=== PATIENT | female | born 1935 | race Caucasian/White ===

== ENCOUNTER 2024-06-26 08:17 | Outpatient (CLI) | payer MEDICARE, OTHER, SELFPAY ==
--- OUTSIDE RECORDS SUMMARY | 2024-06-26 08:20 | XMS_ITS | Encounter Summary ---
Author Organization [facility] Address [address] [place] [address] Care Team Providers Care Gastroenterology Nurse Name Role Phone Leigh Petty M.D. Primary Care Provider [phone] [phone] Encounter Details Date Type Department Care Team (Late st Contact Info) Description 05/08/2015 Historical Ophthalmology RST OPH Vasiliy Morejon M.D. [address] [place] [address] Social History Tobacco Use Types Packs/Day Years Used Date Smoking Tobacco: Never Assessed Comments Unknown Sex and Gender Information Value Date Recorded Sex Assigned at Female 07/27/2023 9:52 AM CLOUD SERVICES ARCHITECT Legal Sex Female 5:55 AM CLOUD SERVICES ARCHITECT Gender Identity Not on file Sexual Orientation Straight 01/01/2018 10 :31 AM CDT documented as of this encounter Progress Notes * Vasiliy Morejon M.D. - 05/08/2015 8:42 AM CDT Eye General CHIEF COMPLAINT general HISTORY OF PRESENT ILLNESS GREGG 3 years Patient feels the right eye is not as clear while watching TV. Patient denies eye pain, flashing lights, diplopia or floaters. She uses [facility] twice a day, once in the morning and in the evening. IMPRESSION / REPORT / PLAN #1 history left retinal tear stable s/p laser #2 cataracts no rx yet #3 refractive error rx given DIAGNOSIS #1 history left retinal tear #2 cataracts #3 refractive error CDM Reports - EYEGEN Id: [id number] Status: Fnl documented in this encounter Plan of Treatment Upcoming Encounters Date Type Department Care Team (Latest Contact Info) Description 06/28/2024 10:00 AM CLOUD SERVICES ARCHITECT Clinical Communication Virtual Review in [place], [place] 200 [place] [address] documented as of this encounter Visit Diagnoses Not on filedocumented in this encounter Additional Health Concerns Infection Onset Date Last Indicated Resolved Time COVID19 09/11/2022 09/11/2022 10/01/2022 4:57 AM CLOUD SERVICES ARCHITECT documented as of this encounter Care Teams Gastroenterology Nurse Relationship Specialty Start Date End Date Leigh Petty M.D. [address] [place] [phone] PCP - General Family Medicine 06/19/08 documented as of this encounter
--- OUTSIDE RECORDS SUMMARY | 2024-06-26 08:20 | XMS_ITS | Encounter Summary ---
Author Organization [facility] Address [address] [place] [address] Care Team Providers Care Er Manager Name Role Phone Leigh Petty M.D. Primary Care Provider [phone] [phone] Reason for Visit * Reason Comments Nurse Visit Seasonal vaccine wendy se visit Encounter Details Date Type Department Care Team (Late st Contact Info) Description 05/16/2024 11:30 AM CDT Immunization Department of Family Medicine, [facility], in [place], [place] [address] [place] [phone] Ariadna Cuellar LCristinaPCristinaN. [address], [place] [phone] Need Vaccine Immunization (Primary Dx) Social History Tobacco Use Types Packs/Day Years Used Date Smoking Tobacco: Former Cigarettes Passive Smoke Exposure: Past Smokeless Tobacco: Never Alcohol Use Standard Drinks/Week Comments Not Currently 2 (1 standard drink = 0.6 oz pur e alcohol) [facility] Utilities Answer Date Recorded In the past 12 months has e electric, gas, oil, or water company threatened to shut off services in your home? No 07/27/2023 Humiliation, Afraid, Rape, and Kick questionnair e Answer Date Recorded Within the last year, have y ou been afraid of your partner or ex-partner? No 05/04/2023 Within the last year, have y ou been humiliated or emotionally abused in other ways by your partner or ex-partner? No Within the last year, have y ou been kicked, hit, slapped, or otherwise physically hurt by your partner or ex-partner? No 05/04/2023 Within the last year, have y ou been raped or forced to have any kind of sexual activity by your partner or ex-partner? No 05/04/2023 AUDIT-C Answer Date Recorded Frequency of Alcohol Consumption Never 04/25/2019 Average Number of Drinks Not on file 019 Frequency of Binge Drinking Not on file 04/01 Overall Financial Resource Strain (CARDIA) Answe r Date Recorded How hard is it for you to pa y for the very basics like food, housing, medical care, and heating? Not hard at all 05/04/2023 PHQ-2 Answer Date Recorded PHQ-2 Score 0 03/06/2024 Exercise Vital Sign Answer Date Recorde d On average, how many days pe r week do you engage in moderate to strenuous exercise (like a brisk walk)? 3 days 07/27/2023 On average, how many minutes do you engage in exercise at this level? 20 min 07/27/2023 Hunger Vital Sign Answer Date Recorded Within the past 12 months, y ou worried that your food would run out before you got the money to buy more. Never true 07/27/20 Within the past 12 months, t he food you bought just didn't last and you didn't have money to get more. Never true 07/27/2023 PRAPARE - Transportation Answer Date Re corded In the past 12 months, has l ack of transportation kept you from medical appointments or from getting medications? No 07/01 In the past 12 months, has l ack of transportation kept you from meetings, work, or from getting things needed for daily living? No 07/27/2023 Depression Answer Date Recor ded PHQ-9 Total Score (max 27) 3 03/21 Nutrition Answer Date Recorded On average, how many serving s of fruits and vegetables do you eat per day (serving size is equal to 1 cup or approximately the size of a tennis ball)? 0-2 07/27/2023 Dental Answer Date Recorded Dental: Regular Dentist Yes 05/04/20 Employment Answer Date Recorded Employment status Retired 07/27/2023 Housing Stability Answer Date Recorded What is your living situation today? I have a [facility] place to live 07/27/2023 Comments No Sex and Gender Information Value Date Recorded Sex Assigned at Female 07/27/2023 9:52 AM FOREPART LASTER Legal Sex Female 5:55 AM FOREPART LASTER Gender Identity Not on file Sexual Orientation Straight 01/01/2018 10 :31 AM CDT documented as of this encounter Last Filed Vital Signs Vital Sign Reading Time Taken Comments Blood Pressure 170/77 05/16/2024 11:30 AM CDT Pulse 69 05/16/2024 11:30 AM CDT Temperature - - Respiratory Rate - - Oxygen Saturation - - Inhaled Oxygen Concentration - - Weight - - Height - - Body Mass Index - - documented in this encounter Plan of Treatment Upcoming Encounters Date Type Department Care Team (Latest Contact Info) Description 06/28/2024 10:00 AM FOREPART LASTER Clinical Communication Virtual Review in [place], [place] [address] [place] [address] documented as of this encounter Visit Diagnoses Diagnosis Need Vaccine Immunization- Primary documented in this encounter Additional Health Concerns Assessment Noted Time PHQ-9 Depression Total Score: 3 03/21/20 23 8:50 AM CDT documented as of this encounter Care Teams Er Manager Relationship Specialty Start Date End Date Leigh ePtty M.D. [address] [place] [phone] PCP - General Family Medicine 06/19/08 documented as of this encounter
--- OUTSIDE RECORDS SUMMARY | 2024-06-26 08:20 | XMS_ITS | Encounter Summary ---
Author Organization [facility] Address [address] [place] [address] Care Team Providers Care Out And Out Cigar Maker Hand Name Role Phone Leigh Petty M.D. Primary Care Provider [phone] [phone] Reason for Referral * Outpatient (Routine) - Closed Specialty Diagnoses / Procedures Referred By Contac t Referred To Contact Diagnoses Screening Mammogram Breast Cancer Procedures BI Breast Screening Bilateral with Tomosynthesis Vasiliy Chavez APRN C.N.PCristina, M.S.N. [address] [place] [phone] Phone: tel: fax: [facility] Referral ID Status Reason Start Date Expiration Date Visits Re quested Visits Authorized [id number] Closed 03/06/2024 03/06/2025 1 1 Reason for Visit * Outpatient (Routine) - Closed Specialty Diagnoses / Procedures Referred By Contcolten t Referred To Contact Diagnoses Screening Mammogram Breast Cancer Procedures BI Breast Screening Bilateral with Tomosynthesis Vasiliy Chavez APRN C.N.P., M.S.N. [address] [place] [phone] Phone: tel: fax: [facility] Referral ID Status Reason Start Date Expiration Date Visits Re quested Visits Authorized [id number] Closed 03/06/2024 03/06/2025 1 1 Encounter Details Date Type Department Care Team (Latest Contact Info) Description 05/10/2024 9:25 AM CDT - 05/10/2024 11:59 PM CDT Hospital Encounter Department of Radiology in [place], [place] [address] [place] [address] Vasiliy Chavez APRN, C.N.P., M.S.N. [address] [place] [address] Screening Mammogram Breast Cancer Discharge Disposition: Home or Self Care Social History Tobacco Use Types Packs/Day Years Used Date Smoking Tobacco: Former Cigarettes Passive Smoke Exposure: Past Smokeless Tobacco: Never Alcohol Use Standard Drinks/Week Comments Not Currently 2 (1 standard drink = 0.6 oz pur e alcohol) [facility] Utilities Answer Date Recorded In the past 12 months has [employer], gas, oil, or water [employer] threatened to shut off services in your [...] your living situation today? I have a [facility] place to live 07/27/2023 Comments No Sex and Gender Information Value Date Recorded Sex Assigned at Female 07/27/2023 9:52 AM CHILD CARE ASSOCIATE TEACHER Legal Sex Female 5:55 AM CHILD CARE ASSOCIATE TEACHER Gender Identity Not on file Sexual Orientation Straight 01/01/2018 10 :31 AM CDT documented as of this encounter Medications at Time of Discharge acetaminophen (TYLENOL) 500 mg tablet Take 1-2 tablets by mouth as needed. pain 06/15/2008 ascorbic acid, vitamin C, (VITAMIN C) 500 mg tablet Take 2 tablets by mouth daily. 06/16/2008 atorvastatin (Lipitor) 10 mg tablet Take 1 tablet (10 mg total) by mouth daily. 90 tablet 3 06/06/2024 6:10 PM CHILD CARE ASSOCIATE TEACHER 03/06/2024 calcium carbonate-vitamin D3 1,500 mg (600 mg calcium)-5 mcg (200 Unit) per tablet Take 1 tablet by mouth 2 (two) times a day. 06/15/2008 cephalexin (KEFLEX) 500 mg capsule Take 2 capsules (1,000 mg total) by mouth 2 (two) times a day. 28 capsule 07/27/2023 10:59 AM CHILD CARE ASSOCIATE TEACHER 07/27/2023 cholecalciferol (VITAMIN D3) 10 mcg (400 Unit) tablet Take 1 tablet by mouth 2 (two) times a day. 06/16/2008 DOCOSAHEXANOIC ACID/EPA (FISH OIL ORAL) Take 1 capsule by mouth 2 (two) times a day. 12/17/2014 estradioL (Vivelle-Dot) 0.025 mg/[address] 1 patch on the skin 2 (two) times a week. 24 patch 3 10/16/2023 11:42 AM CDT 11/07/2022 FOLIC ACID/MULTIVIT,IRO N,ARMORED CABLE MACHINE OPERATOR (CENTRUM ORAL) Take 1 tablet by mouth daily. 06/16/2008 L. ACIDOPHILUS/BIFID . ANIMALIS (SUPER PROBIOTIC ORAL) Take 1 capsule by mouth daily. 03/16/2016 lysine 500 mg tablet Take 1 tablet by mouth daily. 06/16/2008 VITAMIN B COMPLEX (BALANCED B-50 ORAL) Take 1 tablet by mouth daily. 06/16/2008 documented as of this encounter Plan of Treatment Upcoming Encounters Date Type Department Care Team (Latest Contact Info) Description 06/28/2024 10:00 AM [facility] Clinical Communication Virtual Review in [address] [phone] documented as of this encounter Procedures Procedure Name Priority Date/Time Associated Diagnosis Comments BI BREAST SCREENING BILATERAL WITH TOMOSYNTHESIS RAD - Routine (most inpatients and all outpatients) 05/10/2024 10:09 AM CDT Screening Mammogram Breast Cancer documented in this encounter Results * BI Breast Screening Bilateral with Tomosynthesis (05/10/2024 10:09 AM CDT) Anatomical Region Laterality Modality Breast, Breast Imaging RST L OS, Breast Imaging ARZ LOS, Breast Imaging FLA LOS Bilateral Mammography Impressions 05/10/2024 10:18 AM CDT Negative. RECOMMENDATION: Annual Screening Mammogram ASSESSMENT: BI-RADS: 1: Negative. Narrative 05/10/2024 10:18 AM CDT EXAM: BI BREAST SCREENING BILATERAL WITH TOMOSYNTHESIS Current study was evaluated with a Computer Aided Detection (CAD) system. INDICATION: Screening mammogram. COMPARISON: Prior exam(s) were available and reviewed for comparison. DENSITY: c. The breast(s) are heterogeneously dense, which may obscure small masses. FINDINGS: No mammographic findings of malignancy. Procedure Note Anival River M.D. - 05/10/2024 EXAM: BI BREAST SCREENING BILATERAL WITH TOMOSYNTHESIS Current study was evaluated with a Computer Aided Detection (CAD) system. INDICATION: Screening mammogram. COMPARISON: Prior exam(s) were available and reviewed for comparison. DENSITY: c. The breast(s) are heterogeneously dense, which may obscuresmall masses. FINDINGS: No mammographic findings of malignancy. IMPRESSION: Negative. RECOMMENDATION: Annual Screening Mammogram ASSESSMENT: BI-RADS: 1: Negative. Vasiliy Chavez APRN, C.N.P., M.S.N. IMG JULIET ANADN Final Result documented in this encounter Visit Diagnoses Diagnosis Screening Mammogram Breast Cancer documented in this encounter Additional Health Concerns Assessment Noted Time PHQ-9 Depression Total Score: 3 03/21/20 23 8:50 AM CDT documented as of this encounter Care Teams Out And Out Cigar Maker Hand Relationship Specialty Start Date End Date Leigh Petty M.D. [address] [place] [address] PCP - General Family Medicine 06/19/08 documented as of this encounter
--- OUTSIDE RECORDS SUMMARY | 2024-06-26 08:20 | XMS_ITS | Encounter Summary ---
Author Organization [facility] Address [address] [place] [address] Care Team Providers Care Front Office Spec Name Role Phone Leigh Petty M.D. Primary Care Provider [phone] [phone] Encounter Details Date Type Department Care Team (Late st Contact Info) Description 04/12/2024 Clinical Communication Department of Family Medicine, [address] [place] [address] Leigh Petty M.D. [address] [place] [address] Social History Tobacco Use Types Packs/Day Years Used Date Smoking Tobacco: Former Cigarettes Passive Smoke Exposure: Past Smokeless Tobacco: Never Alcohol Use Standard Drinks/Week Comments Not Currently 2 (1 standard drink = 0.6 oz pur e alcohol) [facility] Utilities Answer Date Recorded In the past [...] your living situation today? I [place] a [facility] place to live 07/27/2023 Comments No Sex and Gender Information Value Date Recorded Sex Assigned at Female 07/27/2023 9:52 AM BANKING SERVICES CLERK Legal Sex Female 5:55 AM BANKING SERVICES CLERK Gender Identity Not on file Sexual Orientation Straight 01/01/2018 10 :31 AM CDT documented as of this encounter Miscellaneous Notes * Telephone Encounter - Yesenia Vasquez R.N. - 04/15/2024 2:59 PM CDT Information Discussed The following message from Dr. Petty was read to the patient: I'm not familiar with that clinic but will say that cataract surgery is a fairly common/routine surgery so if she feels she would prefer to be seen locally (where she lives) that sounds reasonable. If she would prefer a referral to be seen at [place] we would be happy to place a referral for her. The patient verbalized understanding. She has an appointment with a surgeon at the [facility] tomorrow. If the patient needs anything further from Dr. Petty, she will call us. PLAN Disposition/Recommendation: self-care is appropriate at this time, patient encouraged to call back with questions Information/Education: patient/caller able to teach back Caller agreeable to plan of care: yes The following references were used: provider Dr. Petty documented in this encounter Plan of Treatment Upcoming Encounters Date Type Department Care Team (Latest Contact Info) Description 06/28/2024 10:00 AM BANKING SERVICES CLERK Clinical Communication Virtual Review in [place], [place] [address] [place] [address] documented as of this encounter Visit Diagnoses Not on filedocumented in this encounter Additional Health Concerns Assessment Noted Time PHQ-9 Depression Total Score: 3 03/21/20 23 8:50 AM CDT documented as of this encounter Care Teams Front Office Spec Relationship Specialty Start Date End Date Leigh Petty M.D. [address] [place] [phone] PCP - General Family Medicine 06/19/08 documented as of this encounter
--- OUTSIDE RECORDS SUMMARY | 2024-06-26 08:20 | XMS_ITS | Clinical Summary ---
Author Organization [facility] Address [address] [place] [address] Care Team Providers Care Bottle Carrier Name Role Phone Leigh Petty M.D. Primary Care Provider [phone] [phone] Source Comments Patient records contain information from all sites at [facility]. For routine questions regarding patient records, call [phone] during business hours, M-F 8:00 AM - 5:00 PM Central Time. Record requests for emergency care only can be directed to [phone] at any time.[facility] Allergies Active Allergy Reactions Criticality Noted Date Comments Codeine Rash Low 08/23/2002 Nsaids (Non-Steroidal Anti-Inflammatory Drug) GI intolerance Low 07/19/2002 Medications * This document contains information received from the source organization and may not represent a complete record from that organization. VITAMIN B COMPLEX (BALANCED B-50 ORAL) Take 1 tablet by mouth daily. 06/16/2008 Active calcium carbonate-vitam in D3 1,500 mg (600 mg calcium)-5 mcg (200 Unit) per tablet Take 1 tablet by mouth 2 (two) times a day. 06/15/2008 Active FOLIC ACID/MULTIVIT,I BANG,CARPET TILE LAYER (CENTRUM ORAL) Take 1 tablet by mouth daily. 06/16/2008 Active DOCOSAHEXANOIC ACID/EPA (FISH OIL ORAL) Take 1 capsule by mouth 2 (two) times a day. 12/17/2014 Active lysine 500 mg tablet Take 1 tablet by mouth daily. 06/16/2008 Active L. ACIDOPHILUS/BIF ID. ANIMALIS (SUPER PROBIOTIC ORAL) Take 1 capsule by mouth daily. 03/16/2016 Active acetaminophen (TYLENOL) 500 mg tablet Take 1-2 tablets by mouth as needed. pain 06/15/2008 Active ascorbic acid, vitamin C, (VITAMIN C) 500 mg tablet Take 2 tablets by mouth daily. 06/16/2008 Active cholecalciferol (VITAMIN D3) 10 mcg (400 Unit) tablet Take 1 tablet by mouth 2 (two) times a day. 06/16/2008 Active estradioL (Vivelle-Dot) 0.025 mg/[address] 1 patch on the skin 2 (two) times a week. 24 patch 3 10/16/2023 11:42 AM CDT 11/07/2022 Active cephalexin (KEFLEX) 500 mg capsule Take 2 capsules (1,000 mg total) by mouth 2 (two) times a day. 28 capsule 07/27/2023 10:59 AM CLINICAL RESOURCE COORDINATOR 07/27/2023 Active atorvastatin (Lipitor) 10 mg tablet Take 1 tablet (10 mg total) by mouth daily. 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 No echo ever done Other Retinal Detachments 07/04/2018 Overview (07/04/2018): Posterior vitreous detachment - both eyes h/o of Horseshoe tear, s/p laser retinopexy, left eye Osteopenia 07/04/2018 Overview (07/04/2018): 2002 dxa. 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 Conjunctivitis 05/16/2024 11:30 AM CDT Immunization Department of Family Medicine, [facility], in [place], [place] [address] [place] [address] Ariadna Cuellar L.P.N. Need Vaccine Immunization (Primary Dx) 05/10/2024 9:25 AM CDT - 05/10/2024 11:59 PM CDT Hospital Encounter Department of Radiology in [place], [place] [address] [place] [phone] Vasiliy Chavez APRN C.N.P., M.S.N. Screening Mammogram Breast Cancer Discharge Disposition: Home or Self Care 04/15/2024 Clinical Communication Department of Ophthalmology in [place], [place] [address] [place] [phone] Payal Salas M.D. 04/12/2024 Clinical Communication Department of Family Medicine, [address] [place] [address] Leigh Petty M.D. from Last 3 Months Immunizations Name Administration Dates Next Due HZV (ZOSTAVAX) 02/05/2008 Influenza high dose QV(65 ye ars or older) (PF) 05/16/2023,05/24/2022,05/21/2021,2019 Influenza, Unspecified 05/12/2004 PCV13 03/16/2016 PPSV23 05/28/2001 RZV (SHINGRIX) 04/26/2019,01/25/2019 SARS-COV-2 (COVID-19) - MODE RNA (12 YEARS AND OLDER) Fall Seasonal 05/16/2023 SARS-COV-2 (COVID-19) - MODE RNA BIVALENT(Discontinued) 05/10/2022 SARS-COV-2 (COVID-19) - MODERNA(Discontinued) 11/30/2021,05/27/2021,09/29/2020,2020 SARS-COV-2 (COVID-19) - PFIZ ER BIVALENT TS(Discontinued)(12 YEARS OR OLDER) 03/21/2023 Td Preservative Free (TENIVA C, DECAVAC) 05/16/2007 Td, (Adult) Unspecified 06/08/1998 Tdap 03/21/2023,05/12/2012 influenza trivalent high dos e (HD)(PF) 05/16/2024,05/17/2019,05/29/2018,2016,05/25/2016,05/13/2015 Family History Medical History Relation Name Comments Cataracts Mother Stroke Mother ryanne stone Strabismus Other Alzheimer's disease Sister Amblyopia Neg Hx Blindness Neg Hx Breast cancer Neg Hx Colon cancer Neg Hx Glaucoma Neg Hx Macular degeneration Neg Hx Ovarian cancer Neg Hx Retinal degeneration Neg Hx Retinal detachment Neg Hx Relation Name Status Comments Mother Other Sister Social History Tobacco Use Types Packs/Day Years Used Date Smoking Tobacco: Former Cigarettes Passive Smoke Exposure: Past Smokeless Tobacco: Never Tobacco Cessation:Counseling Given: Not Answered Alcohol Use Standard Drinks/Week Comments Not Currently 2 (1 standard drink = 0.6 oz pur e alcohol) [facility] [employer] G[employer] Answer Date Recorded In the past 12 months has e [employer], gas, oil, or water [employer] threatened to shut off services in your [...] your living situation today? I have a [facility] place to live 07/27/2023 Comments No Sex and Gender Information Value Date Recorded Sex Assigned at Female 07/27/2023 9:52 AM CLINICAL RESOURCE COORDINATOR Legal Sex Female 5:55 AM CLINICAL RESOURCE COORDINATOR Gender Identity Not on file Sexual Orientation Straight 01/01/2018 10 :31 AM CDT Last Filed Vital Signs Vital Sign Reading Time Taken Comments Blood Pressure 170/77 05/16/2024 11:30 AM CDT Pulse 69 05/16/2024 11:30 AM CDT Temperature - - Respiratory Rate - - Oxygen Saturation - - Inhaled Oxygen Concentration - - Weight 67.8 kg (149 lb 7.6 oz) 03/06/2024 10:00 AM CDT Height 162.9 cm (5' 4.13) 05/04/2023 8:53 AM CD T Body Mass Index 25.55 05/04/2023 8:53 AM CDT Plan of Treatment Upcoming Encounters Date Type Department Care Team (Latest Contact Info) Description 06/28/2024 10:00 AM CLINICAL RESOURCE COORDINATOR Clinical Communication Virtual Review in [place] [address] [place] [address] Health Maintenance Due Date Last Done Comments RSV vaccine - (32-36 weeks) or 60+ years (1 - 1-dose 75+ series) 2010 Fall Risk Screen (Annual) 07/31/2023 COVID-19 Vaccine ( season) 2024 05/16/2023, 03/21/2023, 05/10/2022, Additional history exists Visit: Medicare Annual Wellness 05/05/2024 05/04/2023 Visit: Annual, age 65+ (or Medicare and <65) 03/06/2025 03/06/2024 DTaP,Tdap,and Td Vaccines (3 - Td or Tdap) 03/21/2033 03/21/2023, 05/12/2012, 05/16/2007, Additional history exists Pneumococcal vaccine (65+ years) Completed 03/16/2016, 05/28/2001 Zoster Vaccines Completed 04/26/2019, 0602/2019, 02/05/2008 Depression Screening (Annual PHQ-2) Completed 03/06/2024 Influenza Vaccine Completed 05/16/2024, , 05/24/2022, Additional history exists IPV Vaccines Aged Out No longer eligi ble based on patient's age to complete this topic Procedures Procedure Name Priority Date/Time Associated Diagnosis Comments BI BREAST SCREENING BILATERAL WITH TOMOSYNTHESIS RAD - Routine (most inpatients and all outpatients) 05/10/2024 10:09 AM CDT Screening Mammogram Breast Cancer from Last 3 Months Results * BI Breast Screening Bilateral with [...] 1: Negative. Vasiliy Chavez APRN, C.N.P., M.S.N. [facility] Final Result from Last 3 Months Insurance [employer] Advance Directives For more information, please contact: [phone] Documents on File Type Date Recorded Patient Laundry Agent Expl anation Advance Directives 02/24/2015 12:00 AM Leg acy document. See document viewer. Care Teams Bottle Carrier Relationship Specialty Start Date End Date Leigh Petty M.D. [address] [place] [address] PCP - General Family Medicine 06/19/08
--- OUTSIDE RECORDS SUMMARY | 2024-06-26 08:20 | XMS_ITS | Encounter Summary ---
Author Organization [facility] Address [address] [place] [address] Care Team Providers Care Pantograph Machine Operator Name Role Phone Leigh Petty M.D. Primary Care Provider [phone] [phone] Reason for Visit * Reason Onset Date Comments Conjunctivitis 05/31/2024 Encounter Details Date Type Department Care Team (Late st Contact Info) Description 05/31/2024 Nurse Triage Department of Family Medicine, [facility], [address] [facility] in [place], [place] [address] [place] [address] [place] [address] Argenis Richardson, RCristinaNCristina [address], [place] [address] Conjunctivitis Social History Tobacco Use Types Packs/Day Years Used Date Smoking Tobacco: Former Cigarettes Passive Smoke Exposure: Past Smokeless Tobacco: Never Alcohol Use Standard Drinks/Week Comments Not Currently 2 (1 standard drink = 0.6 oz pur e alcohol) [facility] Utilities Answer Date Recorded In the [...] your living situation today? I have a [facility] place to live 07/27/2023 Comments No Sex and Gender Information Value Date Recorded Sex Assigned at Female 07/27/2023 9:52 AM SPRAY MIXER Legal Sex Female 5:55 AM SPRAY MIXER Gender Identity Not on file Sexual Orientation Straight 01/01/2018 10 :31 AM CDT documented as of this encounter Miscellaneous Notes * Telephone Encounter - Argenis Richardson R.N. - 05/31/2024 3:28 PM CDT Chief Complaint / Reason for Call Patient is a 88 y.o. female calling regarding Conjunctivitis. Assessment Concern: Right eye redness with a little bit of discharge. Eyelid may be a little bit swollen. Present for: Today Home cares tried: refresh eye drops Calling to request: Advice/information The recommended disposition is Home Care. The patient/caller reports signs and symptoms suggestive of pink eye. This can include redness and drainage. If any of the below symptoms are YES, the patient should be seen in the emergency department. Severe eye pain No Severe headache with nausea No Full or partial loss of field of vision No Age <1 month AND starts to look or act sick N/A Age <12 weeks AND fever 100.4 or higher N/A Age <18 years AND fever over 105 N/A Eyelids are very red, swollen (shut or almost shut), tender to touch, AND fever No If any of the below symptoms are YES, the patient should see a healthcare provider within 4 hours. Moderate eye pain (interferes with normal activities) No Fever > 104 No Constant blinking (r/o foreign body) No Age <1 month AND eye swollen shut with lots of pus N/A Cloudy spot or sore seen on the cornea (clear part of the eye) No Blurred vision No Eye or eyelid is very red or very swollen (shut or almost) No If any of the below symptoms are YES, the patient should see a healthcare provider within 24 hours. Mild eye pain or discomfort and wears contacts No Age <1 month old N/A Eyelid is red and painful or tender to touch (The infection has spread away from just the conjunctiva and should be seen to r/o eyelid infection) No History of glaucoma No New or abnormal discharge from genitalia No Earache reported or ear infection suspected No Fever present > 3 days (72 hours) No Recent trauma to the eye No Severe sensitivity to light No Lots of yellow or green nasal discharge AND present now AND fever No Weak immune system (HIV, chemo, splenectomy, organ transplant, chronic steroids, etc.) No Redness > 7 days No If any of the below symptoms are YES, the patient should contact a healthcare provider within 24 hours. Using antibiotic eyedrops AND eyes have become very itchy (especially after drops are put in) No Using oral antibiotic or antibiotic eyedrops > 3 days AND pus persists No If any of the below symptoms are YES, the patient should follow the below Home Care Instructions. Cold symptoms: congestion, earache, sore throat, or cough No Exposure to environmental irritants: smog, smoke, pool water, shampoo, onions, household cleaning products, or jalapeno peppers No History of hay fever or allergies and eye itching No Clear eye discharge Not asked Redness AND/OR discharge AND cause unknown YES Home Care Instructions Minto eye is no more contagious than the common cold. Rinse eyes frequently with warm water, every 1 to 2 hours when awake. Use a soft, warm, moist clothto remove crusting and drainage. If exposed to chemical irritants, rinse eyes with warm water for 5 minutes. Apply alternating warm and cold compresses to eyes for 10 minutes every 2 hours for 24 hours. Artificial tears may provide comfort. Use per package instructions. Do not share towels or linens with other household members. Wash or change pillowcase every day until the infection goes away. Be sure to clean linens in hot water and detergent. Avoid touching eyes and wash hands frequently. Don???t wear contact lenses until symptoms resolve. Be sure to throw away disposable contact lenses. If you wear eye makeup, stop wearing it while you have an infection. Throw away your old eye makeupand get new makeup once your eyes are healthy. It's okay to return to work, school, or child day care provider. If possible, practice good hygiene and avoid close contact. Call back if the redness lasts more than 7 days, if new symptoms develop or if the current symptomsworsen. Encouraged patient to call back with any new, worsening, or persistent symptoms. documented in this encounter Plan of Treatment Upcoming Encounters Date Type Department Care Team (Latest Contact Info) Description 06/28/2024 10:00 AM SPRAY MIXER Clinical Communication Virtual Review in [place], [place] 200 [place] [address] documented as of this encounter Visit Diagnoses Not on filedocumented in this encounter Additional Health Concerns Assessment Noted Time PHQ-9 Depression Total Score: 3 03/21/20 23 8:50 AM CDT documented as of this encounter Care Teams Pantograph Machine Operator Relationship Specialty Start Date End Date Leigh Petty M.D. [address] [place] [phone] PCP - General Family Medicine 06/19/08 documented as of this encounter
--- OUTSIDE RECORDS SUMMARY | 2024-06-26 08:20 | XMS_ITS | Encounter Summary ---
Author Organization [facility] Address [address] [place] [address] Care Team Providers Care Bridge Attacher Name Role Phone Leigh Petty M.D. Primary Care Provider +1 [phone] Encounter Details Date Type Department Care Team (Latest Contact Info) Description 04/15/2024 Clinical Communication Department of Ophthalmology in [place], [place] [address] [place] [address] Payal Salas M.D. [address] [place] [phone] Social History Tobacco Use Types Packs/Day Years Used Date Smoking Tobacco: Former Cigarettes Passive Smoke Exposure: Past Smokeless Tobacco: Never Alcohol Use Standard Drinks/Week Comments Not Currently 2 (1 standard drink = 0.6 oz pur e alcohol) [facility] Utilities Answer Date Recorded In the past 12 months has e [employer], gas, oil, or water [employer] threatened to shut off services in your [...] your living situation today? I have a [facility] place to live 07/27/2023 Comments No Sex and Gender Information Value Date Recorded Sex Assigned at Female 07/27/2023 9:52 AM REGISTERED DENTAL ASSISTANT RDA Legal Sex Female 5:55 AM REGISTERED DENTAL ASSISTANT RDA Gender Identity Not on file Sexual Orientation Straight 01/01/2018 10 :31 AM CDT documented as of this encounter Plan of Treatment Upcoming Encounters Date Type Department Care Team (Latest Contact Info) Description 06/28/2024 10:00 AM REGISTERED DENTAL ASSISTANT RDA Clinical Communication Virtual Review in [place], [place] 200 [place] [address] Scheduled Orders Name Type Priority Associated Diagnoses Orde r Schedule Ocular Coherence Biometry (OCB) - OU - Both Eyes Ophthalmology Routine Age Related Nuclear Cataract Bilateral Expected: 04/15/2024 (Approximate), Expires: 07/15/2025 [place] Tomography (Pentacam) - OU - Both Eyes Ophthalmology Routine Age Related Nuclear Cataract Bilateral 1 Occurrences starting 04/15/2024 until 07/15/2025 documented as of this encounter Visit Diagnoses Diagnosis Age Related Nuclear Cataract Bilateral- Primary documented in this encounter Additional Health Concerns Assessment Noted Time PHQ-9 Depression Total Score: 3 03/21/20 23 8:50 AM CDT documented as of this encounter Care Teams Bridge Attacher Relationship Specialty Start Date End Date Leigh Petty M.D. [address] [place] [phone] PCP - General Family Medicine 06/19/08 documented as of this encounter
--- OUTSIDE RECORDS SUMMARY | 2024-06-26 08:20 | XMS_ITS ---
Author Organization [facility] Address [address] [place] [address] Care Team Providers Care Paralegal Secretary Name Role Phone Unavailable Unavailable Unavailable Surgery Details Not on file Complications Check Surgery Details section. Procedure Estimated Blood Loss Check Surgery Details section. Procedure Findings Check Surgery Details section. Procedure Specimens Taken Check Surgery Details section.
--- OUTSIDE RECORDS SUMMARY | 2024-06-26 08:20 | XMS_ITS | Referral Summary ---
Author Organization [facility] Address [address] [place] [address] Care Team Providers Care S3B Multi Sensor Operator Name Role Phone Leigh Petty M.D. Primary Care Provider [phone] [phone] Source Comments Patient records contain information from all sites at [facility]. For routine questions regarding patient records, call [phone] during business hours, M-F 8:00 AM - 5:00 PM Central Time. Record requests for emergency care only can be directed to [phone] at any time.[facility] Encounters Date Type Department Care Team Description 05/31/2024 Nurse Triage Department of Family Medicine, [address] [place] [address] Argenis Richardson R.N. Conjunctivitis 05/16/2024 11:30 AM CDT Immunization Department of Family Medicine, [facility], in [place], [place] [address] [place] [address] Ariadna Cuellar L.PCristinaN. Need Vaccine Immunization (Primary Dx) 05/10/2024 9:25 AM CDT - 05/10/2024 11:59 PM CDT Hospital Encounter Department of Radiology in [place], [place] [address] [place] [address] Vasiliy Chavez APRN, C.N.P., M.S.N. Screening Mammogram Breast Cancer Discharge Disposition: Home or Self Care 04/15/2024 Clinical Communication Department of Ophthalmology in [place], [place] [address] [place] [address] Payal Salas M.D. 04/12/2024 Clinical Communication Department of Family Medicine, [address] in [place], [place] [address] [facility] [place] [address] Leigh Petty M.D. from Last 3 Months Allergies Active Allergy Reactions Criticality Noted Date [...] times a day. 06/15/2008 Active FOLIC ACID/MULTIVIT,I BANG,CO DIRECTOR (CENTRUM ORAL) Take 1 tablet by mouth [...] a day. 28 capsule 07/27/2023 10:59 AM PERIODICALS CLERK 07/27/2023 Active atorvastatin (Lipitor) 10 mg tablet Take 1 tablet (10 mg total) by mouth daily. 90 tablet 3 06/06/2024 6:10 PM PERIODICALS CLERK 03/06/2024 Active Active Problems Problem Noted Date [...] Diagnosed Date Resolved Date Cellulitis 07/27/2023 03/06/2024 Immunizations Name Administration Dates Next Due HZV [...] influenza trivalent high dos e (HD)(PF) 05/16/2024,05/17/2019,05/29/2018,2016,05/25/2016,05/13/2015 Social History Tobacco Use Types Packs/Day Years Used Date Smoking Tobacco: Former Cigarettes Passive Smoke Exposure: Past Smokeless Tobacco: Never Tobacco Cessation:Counseling Given: Not Answered Alcohol Use Standard Drinks/Week Comments Not Currently 2 (1 standard drink = 0.6 oz pur e alcohol) [facility] [employer] Answer Date Recorded In the past 12 months has e [employer], oil, or water [facility] threatened to shut off services in your [...] your living situation today? I have a [facility] place to live 07/27/2023 Comments No Sex and Gender Information Value Date Recorded Sex Assigned at Female 07/27/2023 9:52 AM PERIODICALS CLERK Legal Sex Female 5:55 AM PERIODICALS CLERK Gender Identity Not on file Sexual [...] (Latest Contact Info) Description 06/28/2024 10:00 AM PERIODICALS CLERK Clinical Communication Virtual Review in [address] [address] Procedures Procedure Name Priority Date/Time Associated Diagnosis [...] 1: Negative. Vasiliy Chavez APRN, C.N.P., M.S.N. [facility] ANAND Final Result from Last 3 Months Insurance [employer] [place] [address] Advance Directives For more information, please contact: [phone] Documents on File Type Date Recorded Patient Tuber Machine Cutter Expl anation Advance Directives 02/24/2015 12:00 AM Leg acy document. See document viewer. Care Teams S3B Multi Sensor Operator Relationship Specialty Start Date End Date Leigh Petty M.D. [address] [place] [address] PCP - General Family Medicine 06/19/08
--- OUTSIDE RECORDS SUMMARY | 2024-06-26 08:21 | XMS_ITS | Encounter Summary ---
Author Organization [facility] Address [address] [place] [address] Care Team Providers Care Sem Manager Name Role Phone Leigh Petty M.D. Primary Care Provider [phone] [phone] Encounter Details Date Type Department Care Team (Late st Contact Info) Description 03/04/2002 Historical Ophthalmology [facility] Javier Smith M.D. Social History Tobacco Use Types Packs/Day Years Used Date Smoking Tobacco: Never Assessed Comments Unknown Sex and Gender Information Value Date Recorded Sex Assigned at Female 07/27/2023 9:52 AM COIN MACHINE SERVICE REPAIRER Legal Sex Female 5:55 AM COIN MACHINE SERVICE REPAIRER Gender Identity Not on file Sexual Orientation Straight 01/01/2018 10 :31 AM CDT documented as of this encounter Progress Notes * Javier Smith M.D. - 03/04/2002 12:00 AM CDT Eye General HISTORY OF PRESENT ILLNESS History of retinal tear, inferior temporal quadrant OS, treated with photocoagulation on 02/04/00. There is no current problem with eye pain, diplopia or flashing lights. Her pattern of floaters has remained stable. IMPRESSION / REPORT / PLAN 1. Status post retinal hole repair, OS, stable, no new abnormalities identified, discussed relativerisk for OD, given literature. 2. Incipient nuclear sclerotic cataracts, OU, not affecting visual function, discussed, observe. 3. Mild astigmatism, stable. 4. Presbyopia CD Reports - [facility] Id: [id number] Status: Fnl documented in this encounter Plan of Treatment Upcoming Encounters Date Type Department Care Team (Latest Contact Info) Description 06/28/2024 10:00 AM COIN MACHINE SERVICE REPAIRER Clinical Communication Virtual Review in [place], [place] [address] [place] [address] documented as of this encounter Visit Diagnoses Not on filedocumented in this encounter Additional Health Concerns Infection Onset Date Last Indicated Resolved Time COVID19 09/11/2022 09/11/2022 10/01/2022 4:57 AM COIN MACHINE SERVICE REPAIRER documented as of this encounter Care Teams Sem Manager Relationship Specialty Start Date End Date Leigh Petty M.D. [address] [place] [phone] PCP - General Family Medicine 06/19/08 documented as of this encounter
--- OUTSIDE RECORDS SUMMARY | 2024-06-26 08:21 | XMS_ITS | Encounter Summary ---
Author Organization [facility] Address [address] [place] [address] Care Team Providers Care Manager Style Name Role Phone Leigh Petty M.D. Primary Care Provider [phone] Encounter Details Date Type Department Care Team (Late st Contact Info) Description 03/04/2005 Historical Ophthalmology RST OPH Rosa Bales M.D. [address] [place] [address] Social History Tobacco Use Types Packs/Day Years Used Date Smoking Tobacco: Never Assessed Comments Unknown Sex and Gender Information Value Date Recorded Sex Assigned at Female 07/27/2023 9:52 AM DATA DELIVERABLES MANAGER Legal Sex Female 5:55 AM DATA DELIVERABLES MANAGER Gender Identity Not on file Sexual Orientation Straight 01/01/2018 10 :31 AM CDT documented as of this encounter Progress Notes * Rosa Bales M.D. - 03/04/2005 12:00 AM CDT Eye General CHIEF COMPLAINT recheck- status post retinal hole repair left eye HISTORY OF PRESENT ILLNESS This is a 69 year old female here for a recheck. She states her vision has been stable over time and notes no new concerns. Occasional floaters are noted with no light flashes. Patient states that they have no ocular pain. IMPRESSION / REPORT / PLAN #1 s/p laser retinopexy, left eye for horseshoe tear #2 Posterior vitreous detachment, both eyes Stable. Return in one year or sooner prn. RD precautions discussed. #3 Cataracts both eyes Observe; rx #1 given. DIAGNOSIS #1 s/p laser retinopexy, left eye for horseshoe tear #2 Posterior vitreous detachment, both eyes #3 Cataracts both eyes CDM Reports - EYEGEN Id: [id number] Status: Fnl documented in this encounter Plan of Treatment Upcoming Encounters Date Type Department Care Team (Latest Contact Info) Description 06/28/2024 10:00 AM DATA DELIVERABLES MANAGER Clinical Communication Virtual Review in [place], [place] [address] [place] [address] documented as of this encounter Visit Diagnoses Not on filedocumented in this encounter Additional Health Concerns Infection Onset Date Last Indicated Resolved Time COVID19 09/11/2022 09/11/2022 10/01/2022 4:57 AM DATA DELIVERABLES MANAGER documented as of this encounter Care Teams Manager Style Relationship Specialty Start Date End Date Leigh Petty M.D. [address] [place] [phone] PCP - General Family Medicine 06/19/08 documented as of this encounter
--- OUTSIDE RECORDS SUMMARY | 2024-06-26 08:21 | XMS_ITS | Encounter Summary ---
Author Organization [facility] Address [address] [place] [id number] Care Team Providers Care World History Teacher Name Role Phone Leigh Petty M.D. Primary Care Provider [phone] [phone] Encounter Details Date Type Department Care Team (Late st Contact Info) Description 02/13/2006 Historical Ophthalmology RST OPH Reggie Olmstead M.D. [address] [place] [address] Social History Tobacco Use Types Packs/Day Years Used Date Smoking Tobacco: Never Assessed Comments Unknown Sex and Gender Information Value Date Recorded Sex Assigned at Female 07/27/2023 9:52 AM FEATHEREDGER AND REDUCER MACHINE Legal Sex Female 5:55 AM FEATHEREDGER AND REDUCER MACHINE Gender Identity Not on file Sexual Orientation Straight 01/01/2018 10 :31 AM CDT documented as of this encounter Progress Notes * Reggie Olmstead M.D. - 02/13/2006 12:00 AM CDT Eye General CHIEF COMPLAINT History of floaters. HISTORY OF PRESENT ILLNESS Patient noted of having a history of retinal tear in 01/2000. Patient denies visual concern with distance or near. Denies flashes, blurred vision or diplopia. Patient denies ocular pain. History of floaters, both eyes. Patient denies ocular pain. Patient notes diplopia, (right eye) with left eye covered, patient thinks it may be due to eye fatigue. Patient noted letters appear to be smaller with the right eye, x 2 months. IMPRESSION / REPORT / PLAN #1 Horsehoe tear, s/p laser retinopexy, left eye Stable. #2 Posterior vitreous detachment, both eyes Stable. Return in one year or sooner prn. RD precautions discussed. #3 Refractive error Rx #1 given. DIAGNOSIS #1 Horsehoe tear, s/p laser retinopexy, left eye #2 Posterior vitreous detachment, both eyes #3 Refractive error CDM Reports - EYEGEN Id: [id number] Status: Fnl documented in this encounter Plan of Treatment Upcoming Encounters Date Type Department Care Team (Latest Contact Info) Description 06/28/2024 10:00 AM FEATHEREDGER AND REDUCER MACHINE Clinical Communication Virtual Review in [place], [place] [address] [place] [address] documented as of this encounter Visit Diagnoses Not on filedocumented in this encounter Additional Health Concerns Infection Onset Date Last Indicated Resolved Time COVID19 09/11/2022 09/11/2022 10/01/2022 4:57 AM FEATHEREDGER AND REDUCER MACHINE documented as of this encounter Care Teams World History Teacher Relationship Specialty Start Date End Date Leigh Petty M.D. [address] [place] [phone] PCP - General Family Medicine 06/19/08 documented as of this encounter
--- OUTSIDE RECORDS SUMMARY | 2024-06-26 08:21 | XMS_ITS | Encounter Summary ---
Author Organization [facility] Address [address] [place] [address] Care Team Providers Care Director Camp Name Role Phone Liegh Petty M.D. Primary Care Provider [phone] Encounter Details Date Type Department Care Team (Late st Contact Info) Description 10/24/2011 Historical Ophthalmology RST OPH Danna Huston M.D. [address] [place] [address] Social History Tobacco Use Types Packs/Day Years Used Date Smoking Tobacco: Never Assessed Comments Unknown Sex and Gender Information Value Date Recorded Sex Assigned at Female 07/27/2023 9:52 AM MACHINE OPERATOR HELPER Legal Sex Female 5:55 AM MACHINE OPERATOR HELPER Gender Identity Not on file Sexual Orientation Straight 01/01/2018 10 :31 AM CDT documented as of this encounter Progress Notes * Danna Huston M.D. - 10/24/2011 10:52 AM CDT Eye General CHIEF COMPLAINT Flashes right eye HISTORY OF PRESENT ILLNESS Light flashes alone; right eye; x 4 days ; on and off. Patient reports constant floaters; right eye; for past 4 days. IRENE: [id number] with h/o horseshoe tear s/p laser retinopexy left eye (2004) presents with few light flashes in the right eye inferiorly and superiorly. Patient denies constant flashing lights. States she sees one dark floater inferior to her visual axis. Dark spot moves with her eye movement. She can e licit thin flash of light if moves her eye quickly. Denies thousands of new floaters, constant flashing lights, decrease in vision. Patient has not noted progression of symptoms since Monday but states the single floater is only change. IMPRESSION / REPORT / PLAN #1 Posterior vitreious detachment - both eyes -Previously noted. Syneresis apparent and accounts for floater patient noticing in the right eye. -No evidence or retinal detachment, tears, or holes on examination by SD today. Horsehoe tear, s/p laser retinopexy, left eye -Advised to avoid vigorous exercise as this seems to elicit occasional flash for patient. Possible that this is peripheral vitreous base which is adherent and likely pulling causing flashes. -Discussed RD warning signs and symptoms. Patient knows to return immediately if worsening symptomatic complaints. #2Horsehoe tear, s/p laser retinopexy, left eye Stable. #3 Dry eyes - both AT 4-6 times per day. 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 #5 Drusen - both eyes CDM Reports - EYEGEN Id: [id number] Status: Fnl documented in this encounter Plan of Treatment Upcoming Encounters Date Type Department Care Team (Latest Contact Info) Description 06/28/2024 10:00 AM MACHINE OPERATOR HELPER Clinical Communication Virtual Review in [place], [place] [address] [place] [phone] documented as of this encounter Visit Diagnoses Not on filedocumented in this encounter Additional Health Concerns Infection Onset Date Last Indicated Resolved Time COVID19 09/11/2022 09/11/2022 10/01/2022 4:57 AM MACHINE OPERATOR HELPER documented as of this encounter Care Teams Director Camp Relationship Specialty Start Date End Date Leigh Petty M.D. [address] [place] [phone] PCP - General Family Medicine 06/19/08 documented as of this encounter
--- OUTSIDE RECORDS SUMMARY | 2024-06-26 08:21 | XMS_ITS | Encounter Summary ---
Author Organization [facility] Address [address] [place] [address] Care Team Providers Care Film Painter Name Role Phone Leigh Petty M.D. Primary Care Provider [phone] [phone] Encounter Details Date Type Department Care Team (Late st Contact Info) Description 02/01/2007 Historical Ophthalmology RST OPH Rosa Bales M.D. [address] [place] [address] Social History Tobacco Use Types Packs/Day Years Used Date Smoking Tobacco: Never Assessed Comments Unknown Sex and Gender Information Value Date Recorded Sex Assigned at Female 07/27/2023 9:52 AM LOAN SERVICES PROFESSIONAL Legal Sex Female 5:55 AM LOAN SERVICES PROFESSIONAL Gender Identity Not on file Sexual Orientation Straight 01/01/2018 10 :31 AM CDT documented as of this encounter Progress Notes * Rosa Bales M.D. - 02/01/2007 9:08 AM CDT Eye General CHIEF COMPLAINT follow up due to Posterior vitreous detachment, both eyes and Horsehoe tear, s/p laser retinopexy,left eye HISTORY OF PRESENT ILLNESS Patient states that there hasn't been any changes in her vision. Wouls like a new prescription thisvisit. Denies flashing lights. Old floaters remain unchanged. Denies pressure and pain. Denies diplopia. IMPRESSION / REPORT / PLAN #1 Horsehoe tear, s/p laser retinopexy, left eye Stable. #2 Posterior vitreous detachment, both eyes Stable. #3 Refractive error Rx #1 given. Plan: FU prn. May return to [facility]. DIAGNOSIS #1 Horsehoe tear, s/p laser retinopexy, left eye #2 Posterior vitreous detachment, both eyes #3 Refractive error CDM Reports - EYEGEN Id: [id number] Status: Fnl documented in this encounter Plan of Treatment Upcoming Encounters Date Type Department Care Team (Latest Contact Info) Description 06/28/2024 10:00 AM LOAN SERVICES PROFESSIONAL Clinical Communication Virtual Review in [place], [place] [address] [place] [address] documented as of this encounter Visit Diagnoses Not on filedocumented in this encounter Additional Health Concerns Infection Onset Date Last Indicated Resolved Time COVID19 09/11/2022 09/11/2022 10/01/2022 4:57 AM LOAN SERVICES PROFESSIONAL documented as of this encounter Care Teams Film Painter Relationship Specialty Start Date End Date Leigh Petty M.D. [address] [place] [phone] PCP - General Family Medicine 06/19/08 documented as of this encounter
--- OUTSIDE RECORDS SUMMARY | 2024-06-26 08:21 | XMS_ITS | Encounter Summary ---
Author Organization [facility] Address [address] [place] [address] Care Team Providers Care Natural Resources Faculty Member Name Role Phone Leigh Petty M.D. Primary Care Provider [phone] [phone] Encounter Details Date Type Department Care Team (Late st Contact Info) Description 08/05/2003 Historical Ophthalmology RST OPH Fred Gibson M.D. Social History Tobacco Use Types Packs/Day Years Used Date Smoking Tobacco: Never Assessed Comments Unknown Sex and Gender Information Value Date Recorded Sex Assigned at Female 07/27/2023 9:52 AM INFERTILITY MEDICAL ASSISTANT Legal Sex Female 5:55 AM INFERTILITY MEDICAL ASSISTANT Gender Identity Not on file Sexual Orientation Straight 01/01/2018 10 :31 AM CDT documented as of this encounter Progress Notes * Fred Gibson M.D. - 08/05/2003 12:00 AM CST Eye General CHIEF COMPLAINT Floaters both eyes HISTORY OF PRESENT ILLNESS This is a 67 year old female that is here today with a concern of increase in floaters in the left eye. Denies any changes in vision, flashing lights. HB: S/P PC HST OS IMPRESSION / REPORT / PLAN #1 S/P PC HST OS #2 PVD OU #3 Incipient cataracts OU Doing well; follow 1 year or prn. DIAGNOSIS #1 S/P PC HST OS #2 PVD OU #3 Incipient cataracts OU CDM Reports - EYEGEN Id: [id number] Status: Fnl documented in this encounter Plan of Treatment Upcoming Encounters Date Type Department Care Team (Latest Contact Info) Description 06/28/2024 10:00 AM INFERTILITY MEDICAL ASSISTANT Clinical Communication Virtual Review in [place], [place] [address] [place] [address] documented as of this encounter Visit Diagnoses Not on filedocumented in this encounter Additional Health Concerns Infection Onset Date Last Indicated Resolved Time COVID19 09/11/2022 09/11/2022 10/01/2022 4:57 AM INFERTILITY MEDICAL ASSISTANT documented as of this encounter Care Teams Natural Resources Faculty Member Relationship Specialty Start Date End Date Leigh Petty M.D. [address] [place] [phone] PCP - General Family Medicine 06/19/08 documented as of this encounter
== END 2024-06-26 08:18 | disposition home or self-care (01) ==
PROVIDERS: Visit Provider Internal Medicine
DX: I10 Essential (primary) hypertension (principal); Z13.6 Encounter for screening for cardiovascular disorders
CPT/HCPCS: 80053; 80061